=== PATIENT | male | born 1970 | race Caucasian/White ===

== ENCOUNTER 2023-02-12 05:36 | Day surgery (SDC) | payer OTHER ==
[2023-02-08 14:49] VITALS: BMI 44.4
[2023-02-12] MEDS ORDERED: PROPOFOL 40 ML ONE (07:14)
[2023-02-12] MEDS ORDERED: Esmolol 100 MG/10 ML VIAL ONE (07:52)
== END 2023-02-12 08:45 | disposition home or self-care (01) ==
LOC: CSHSDC 05:36
PROVIDERS: ATTEND Internal Medicine Gastroenterology
PROC: 0DJD8ZZ Inspection of Lower Intestinal Tract, Via Natural or Artificial Opening Endoscopic (ICD-10-PCS; principal; 2023-02-12)
DX: K57.30 Diverticulosis of large intestine without perforation or abscess without bleeding (principal); Z12.11 Encounter for screening for malignant neoplasm of colon; E66.9 Obesity, unspecified; E11.40 Type 2 diabetes mellitus with diabetic neuropathy, unspecified; E03.9 Hypothyroidism, unspecified; G47.00 Insomnia, unspecified; E23.0 Hypopituitarism; Z88.1 Allergy status to other antibiotic agents; Z88.0 Allergy status to penicillin
CPT/HCPCS: 36416; J2704